=== PATIENT | female | born 1950 | race Caucasian/White ===

== ENCOUNTER 2017-04-19 10:51 | Day surgery (SDC) | payer OTHER ==
[~2017-04-19] VITALS: Ht 152.4 cm; Wt 62.0 kg
[2017-04-19] MEDS ORDERED: ASPIRIN (11:55)
[2017-04-19] MEDS ORDERED: LISINOPRIL (11:55)
[2017-04-19] MEDS ORDERED: FENOFIBRATE (11:55)
[2017-04-19] MEDS ORDERED: METFORMIN (11:55)
[2017-04-19 11:56] VITALS: Ht 152.4 cm; Wt 62.0 kg
[2017-04-19 12:46] VITALS: BP 125/63; PULSE 65; RESP 22
[2017-04-19] MEDS ORDERED: FENTAnyl 50 MCG/ML VIAL ONE (13:24)
[2017-04-19] MEDS ORDERED: MIDAZOLAM 1 MG/ML 2 ML INJ ONE (13:24)
[2017-04-19 13:47] VITALS: BP 95/69; RESP 20
--- NOTE | 2017-04-21 08:49 | GILP ---
DATE OF PROCEDURE: 04/19/2017 PREOPERATIVE DIAGNOSIS: History of polyps. PROCEDURE PERFORMED: Colonoscopy up to cecum. POSTOPERATIVE DIAGNOSIS: Diverticulosis, otherwise normal colonoscopy. DESCRIPTION OF PROCEDURE: The patient was put in the left lateral decubitus after obtaining informed consent. She was sedated with 2 mg of IV Versed, 50 mcg of fentanyl IV. Monitoring oximetry, blood pressure, and EKG. The Olympus video pediatric colonoscope was advanced all the way to cecum. Appendiceal opening and ileocecal valve identified. Cecum, ascending colon, transverse colon normal. In the left colon, descending colon, sigmoid colon, a few diverticula noted. Rectum including retroflexion was unremarkable. Upon removal of the scope, the patient had no complications. PLAN: To follow up as an outpatient. Repeat colonoscopy in 10 years. Dictated By: Eduardo Ramírez MD /[email or web address] /Document#: [id number] ; DR. IOANA HANKINS
== END 2017-04-19 18:01 | disposition home or self-care (01) ==
LOC: MERGE 10:51 → GIL 10:51
PROVIDERS: ATTEND Internal Medicine
DX: Z86.010 Personal history of colon polyps (principal); K57.90 Diverticulosis of intestine, part unspecified, without perforation or abscess without bleeding
CPT/HCPCS: 45378; J2250; J3010